=== PATIENT | male | born 1990 | race Caucasian/White ===

== ENCOUNTER 2016-07-17 21:15 | Inpatient (IN) | payer BC ==
--- NOTE | ~2016-07-17 | DS ---
Unit #: [id number] #: [id number] Patient: KAYLIE MORELAND [id number] [facility] [address] [place] [address] [id number] MR#: [id number] NAME: KAYLIE MORELAND ROOM: [facility] Age: 25 Sex: M Admission Date: 07/17/2016 : 1990 Discharge Date: 07/19/2016 Attending Physician: Dustin Dumont M.D. Primary Care Physician: Primary Care Physician No DISCHARGE SUMMARY REASON FOR ADMISSION Depression and suicidal ideation. DIAGNOSTIC STUDIES LABORATORY RESULTS: Unremarkable. HOSPITAL COURSE The patient was admitted to inpatient unit on 07/17/2016 and discharged on 07/19/2016. The patient was treated on the inpatient unit with group therapy, individual therapy, and medication management. The patient was able to contract for safety. The patient was on Prozac 20 mg daily. The patient was subsequently discharged with a plan to follow up in outpatient clinic. DISCHARGE MEDICATIONS Prozac 20 mg daily for depression. DISCHARGE DIAGNOSES Psychiatric: Major depressive disorder, recurrent, severe, F33.2. Secondary diagnosis: Deferred. Medical diagnosis: None. Stressors: Psychosocial stressors. DISCHARGE INSTRUCTIONS The patient is to follow up in outpatient clinic as per social work faculty member. CONDITION ON DISCHARGE The patient was pleasant and cooperative. Denied any psychotic symptom or any suicidal ideation. PROGNOSIS Guarded. DIET AND ACTIVITY As tolerated. Dictated by... Dustin Dumont M.D. Unit #: [id number] #: [id number] Patient: KAYLIE MORELAND SZC/modl TD: 07/19/2016 16:17 JOB #: [id number] DISCHARGE SUMMARY X Dustin Dumont MD X DISCHARGE SUMMARY
--- NOTE | ~2016-07-17 | PA ---
Unit #: [id number] #: [id number] Patient: KAYLIE AUSTIN [id number] [facility] [address] [place] [address] [id number] I MR#: [id number] NAME: KAYLIE AUSTIN ROOM: [facility] Age: 25 Sex: M Admission Date: 07/17/2016 : 1990 Date of Assessment: 07/18/2016 Attending Physician: Dustin Dumont M.D. Admitting Physician: Dustin Dumont M.D. Primary Care Physician: Primary Care Physician No PSYCHIATRIC ASSESSMENT INFORMANT The patient's reliability, fair ; chart reliability, good. CHIEF COMPLAINT Suicidal ideation. HISTORY OF PRESENT ILLNESS Mr. Kaylie Austin is a 25-year-old male presented with the above-mentioned complaint, presented from [place] [facility] to [facility]. The patient reported feeling very sad and depressed. The patient reported he cannot go on reported feeling sad and depressed for many years. The patient reported that urges to hurt himself are growing more and more each day. The patient reported revisited primary care physician who recommended inpatient treatment. The patient reported he takes Prozac, feeling low energy, sad, depressed. The patient reported no major stressor, less with fiancee. The patient reported that he hates going to work every day because he does not like the job. He wishes he would have not dropped out of the college. The patient stated that he lives check to check and it is hard to pay his mortgage as well as other bills. The patient stated that he wishes that he had courage to shoot himself and never wake up. The patient denied any psychotic symptom or any substance abuse or any homicidal ideation. The patient lives with jamie from 8 months and the patient needed inpatient admission at this time for psychiatric stabilization. PAST PSYCHIATRIC HISTORY Remarkable for history of outpatient treatment. No history of any inpatient treatment or any suicide attempt. FAMILY HISTORY/SOCIAL HISTORY The patient lives with jamie. No history of abuse. No known history of any psychiatric illness in the family. MEDICAL HISTORY Unremarkable for any chronic medical illness. Musculoskeletal; muscle strength and tone, no atrophy or abnormal movement. Gait normal. MEDICATION HISTORY The patient is on Prozac 20 mg for depression. ALLERGIES No known drug allergies. Unit #: [id number] #: [id number] Patient: KAYLIE AUSTIN SUBSTANCE ABUSE HISTORY The patient denied any use of drugs or alcohol. REVIEW OF SYSTEMS HEENT: Eyes clear. Ears, nose, mouth, and throat clear. CARDIOVASCULAR: Unremarkable. RESPIRATORY: Unremarkable. GI: Unremarkable. : Unremarkable. SKIN: Unremarkable. LYMPH NODE: Unremarkable. NEUROLOGIC: Unremarkable. ENDOCRINE: Unremarkable. HEMATOLOGIC: Unremarkable. ALLERGIC/IMMUNOLOGIC: Unremarkable. MUSCULOSKELETAL: Muscle strength and tone, no atrophy or abnormal movement. Gait normal. MENTAL STATUS EXAMINATION CONSTITUTIONAL: Measurement of vital signs; temperature 98.7, heart rate 60, respirations 18, blood pressure 153/106, height 6 feet 11 inches, weight 210 pounds. GENERAL APPEARANCE: The patient is dressed casually. The patient did not show any facial deformity. MUSCULOSKELETAL: Please see above. PSYCHIATRIC EXAMINATION Description of speech; regular rate. Description of thought process, goal directed. Description of association, intact. Denied any hallucination or delusions and reported suicidal ideation on admission, but denied any current suicidal or homicidal ideation. Denied any psychotic symptom. Description of patient's judgment, concerning. Everyday activity, poor. Social situation, poor and concerning. Psychiatric condition, poor. Complete mental status examination; oriented in time, place, and person. Recent and remote memory, poor. Attention span and concentration, fair. Language, able to name object, repeat phrases. Fund of knowledge, aware of current event, passive vocabulary intact. Mood and affect, sad and dysphoric. Insight and judgment, fair to poor. ASSETS AND LIABILITIES Assets; the patient is articulate, and able to take care of his ADL. Liability; history of depression. ADMITTING DIAGNOSES Psychiatric: Major depressive disorder, recurrent, severe, F33.2. Secondary diagnosis: Deferred. Medical diagnosis: None. Stressors: Psychosocial stressors. PSYCHIATRIC PLAN, TREATMENT GOAL, AND DISCHARGE PLAN 1. Advised to admit the patient on the inpatient unit. Provide safe, supportive, and structured environment. 2. Ordered labs; CBC, CMP, UA, and UDS. 3. Precaution for self-harm. Unit #: [id number] #: [id number] Patient: KAYLIE AUSTIN 4. The patient is to attend all the programing and resume home medication. If needed, consider further adjustment of medication. 5. Treatment goal to attain euthymic mood, gain insight into his problem, and learn coping skills. 6. Discharge plan; plan is to stabilize the patient and consider followup in outpatient program. ESTIMATED LENGTH OF STAY 3 to 5 days. Dictated by... Miguel Grimm/lisa TD: 07/19/2016 05:26 JOB #: [id number] PSYCHIATRIC ASSESSMENT X Dustin Dumont MD PSYCHIATRIC ASSESSMENT
--- NOTE | ~2016-07-17 | HP ---
Unit #: [id number] #: [id number] Patient: KAYLIE MORELAND [id number] [place] [address] [id number] MR#: [id number] NAME: KAYLIE MORELAND ROOM: P252 Age: 25 Sex: M Admission Date: 07/17/2016 : 1990 Attending Physician: Dustin Dumont M.D. Admitting Physician: Dustin Dumont M.D. Primary Care Physician: Primary Care Physician No HISTORY AND PHYSICAL HISTORY OF PRESENT ILLNESS Kaylie is a 25 year old admitted to [address] [place] [address] with depression and verbalizing wanting to hurt himself. PAST MEDICAL HISTORY Nothing significant. PAST SURGICAL HISTORY Nothing reported. ALLERGIES Penicillin. SOCIAL HISTORY He denies cigarettes, alcohol and illicit drug use. FAMILY HISTORY Medically noncontributory. REVIEW OF SYSTEMS CONSTITUTIONAL: No fever or chills. HEENT: Denies any sore throat, ear pain or runny nose. CARDIOVASCULAR: Denies chest pain, irregular heart rhythm or palpitations. CHEST: Denies shortness of breath or cough. No hemoptysis. GASTROINTESTINAL: Denies nausea, vomiting, diarrhea or chronic constipation. ENDOCRINE: Denies history of increased thirst or urination. No recent significant weight loss or gain. GENITOURINARY: Denies dysuria, frequency, or hematuria. SKIN: Denies any rashes. HEMATOLOGIC: Denies history of increased bleeding or bruising. MUSCULOSKELETAL: Denies any hot, swollen joints. No generalized muscle pain. NEUROLOGIC: Denies problems with vision or speech. No frequent, severe headaches. No numbness, tingling or weakness in any extremities. Denies loss of bladder or bowel control. CURRENT MEDICATIONS 1. Prozac 20 mg daily. 2. Milk of Magnesia p.r.n. 3. Maalox p.r.n. 4. Tylenol p.r.n. Unit #: [id number] #: [id number] Patient: KAYLIE MORELAND PHYSICAL EXAMINATION GENERAL: Alert, well-nourished, in no apparent distress. VITAL SIGNS: Blood pressure 152/100, heart rate 80, respirations 16, temperature 98.6. WEIGHT: 235. HEIGHT: 5 feet 11 inches. SKIN: Warm and dry without rash or lesion. HEENT: Normocephalic. TMs not viewed. Oral and nasal passages clear. Conjunctivae clear. PERRLA. EOMs intact. NECK: Supple without lymphadenopathy or thyromegaly. HEART: Regular rate and rhythm without murmur. LUNGS: Clear. ABDOMEN: Soft, nontender. : Not done. EXTREMITIES: No evidence of cyanosis, clubbing or edema. Moves all without focal deficit. NEUROLOGICAL: Grossly within normal limits. Cranial Nerves: II: Visual hickey are intact. III, IV AND : Extraocular movements are intact. Pupils are equal, round and reactive to light. V: Facial sensation is grossly normal. VII: Facial movements and expression are normal. VIII: Auditory acuity grossly intact. IX, X: Uvula is midline. Phonation is normal. XI: Patient shrugs shoulders and turns head normally. XII: Tongue protrudes in the midline. Sensory and Motor Function: Sensory and motor sensation is grossly normal. Motor: moves all extremities well. Coordination: Gait is normal. Deep Tendon Reflexes: Intact. IMPRESSION Psychiatric admission. RECOMMENDATIONS PSYCHIATRIC: Per psychiatrist. MEDICAL: See no contraindications to participate in facility's activities. MEDICAL PROGNOSIS Good. MEDICAL CONDITION Stable. Dictated by... Marivel Hodge P.A.-C. for Miguel Isidro/heavenly TD: 07/18/2016 18:10 JOB #: [id number] Unit #: [id number] #: [id number] Patient: KAYLIE MORELAND HISTORY AND PHYSICAL X Marivel Hodge X HISTORY AND PHYSICAL
--- NOTE | ~2016-07-17 | PN ---
Unit #: [id number] #: [id number] Patient: KALYIE MORELAND [id number] [facility] [address] [place] [address] [id number] MR#: [id number] NAME: KAYLIE MORELAND ROOM: P252 Age: 25 Sex: M Admission Date: 07/17/2016 : 1990 Attending Physician: Dustin Dumont M.D. Admitting Physician: Dustin Dumont M.D. Primary Care Physician: Primary Care Physician Shelby MORENO NOTES DATE 07/18/2016 DISCUSSION Kaylie Moreland is a 25-year-old male seen on 07/18/2016. The patient interviewed, chart reviewed. Obtained information from nursing staff. The patient was compliant and cooperative. Mood sad, dysphoric, anxious. The patient as cooperative. The patient was able to contract for safety. Complete review of systems unremarkable. MENTAL STATUS EXAMINATION General appearance, the patient dressed casually. Attention span and concentration fair. Oriented to place and person. Mood and affect sad, dysphoric. Speech monotone. Thought process goal directed. Association the patient denied any thoughts of harming self or others and wanted to followup on outpatient basis. Denied any psychotic symptoms. Recent and remote memory fair. Insight and judgement fair to poor. DIAGNOSES Mood disorder NOS. ASSESSMENT/PLAN Advise to continue with current medication and therapeutic protocol. We will monitor response to medication and make further adjustment of medication if needed. Dictated by... Miguel Grimm/rui TD: 07/19/2016 22:46 JOB #: [id number] Unit #: [id number] #: [id number] Patient: KAYLIE MORELAND PROGRESS NOTES X Dustin Dumont MD PROGRESS NOTE
[2016-07-18 09:42] LABS: URINE APPEARANCE CLOUDY; URINE BILIRUBIN NEG (NEG); URINE BLOOD NEG (NEG); URINE COLOR YELLOW; URINE GLUCOSE NEG (NEG); URINE KETONE NEG (NEG); URINE LEUKOCYTE ESTERASE NEG (NEG); URINE NITRATE NEG (NEG); URINE PROTEIN NEG (NEG); URINE SPECIFIC GRAVITY 1.024 (1.003-1.035)
[2016-07-18 10:05] LABS: THYROID STIMULATING HORMONE 2.1 uIU/ml (0.34-5.60)
[2016-07-18 10:12] LABS: FREE THYROXIN (T4) 0.79 ng/dL (0.58-1.64)
== END 2016-07-19 12:15 | disposition home or self-care (01) | DRG 885 ==
LOC: P2L 21:15
PROVIDERS: Psychiatry & Neurology Psychiatry
DX: F33.2 Major depressive disorder, recurrent severe without psychotic features (principal); Z88.0 Allergy status to penicillin
CPT/HCPCS: 81003; 84439; 84443